=== PATIENT | male | born 1960 | race Hispanic/Latino ===

== ENCOUNTER 2018-09-22 16:33 | Inpatient (IN) | payer SELFPAY ==
[2018-09-22] MEDS ORDERED: Iopamidol 370 76% 100 ML VIAL ONE (16:56)
[2018-09-22 17:10] LABS: Bilirubin Negative (Negative); Blood, Urine Negative (Negative); Clarity CLEAR (Clear); Glucose, Urine (Dipstick) Negative (Negative); Leukocyte Negative (Negative); Nitrite Negative (Negative); Protein, Urine (Dipstick) Negative (Neg-Trace); Specific Gravity, Urine 1.019 (1.002-1.036)
[2018-09-22 18:08] LABS: #Eosinphils 0.3 thou/uL (0.0-0.7); #Lymphocytes 1.3 thou/uL (1.20-3.40); #Monocytes 0.5 thou/uL (0.11-0.59); #Neutrophils 4.4 thou/uL (1.40-6.50); %Basophils 0.1 % (0.0-1.0); %Eosinophils 5.1 % (0.0-10.0); %Lymphocytes 20.2 % (21.0-51.0); %Monocytes 6.9 % (0.0-10.0); %Neutrophils 67.7 % (42.0-75.0); Hemoglobin 14.3 g/dL (14.0-18.0); Mean Corpuscular HGB CONC 33.3 g/dL (32.0-36.0); Mean Corpuscular Hemoglobin 32.9 pg (27.0-31.0); Mean Corpuscular Volume 98.7 fL (78.0-98.0); Mean Platelet Volume 8.2 fL (7.4-10.4); Platelet Count 130 thou/uL (130-400); RBC Distribution Width 11.7 % (11.5-14.5); Red Blood Cell (RBC) Count 4.35 mill/uL (4.70-6.10); White Blood Cell (WBC) Count 6.5 thou/uL (4.8-10.8)
[2018-09-22 18:29] LABS: ALT (SGPT) 33 U/L (8-55); AST (SGOT) 29 U/L (5-34); Albumin 3.6 g/dL (3.5-5.0); Alkaline Phosphatase 123 U/L (40-150); Anion Gap 13 mmol/L (10-20); BUN (Urea Nitrogen) 16 mg/dL (8.4-25.7); Bilirubin, Total 1.2 mg/dL (0.2-1.2); Calc. Creatinine Clearance 0 mL/min (70-130); Calcium 9.1 mg/dL (7.8-10.44); Carbon Dioxide 27 mmol/L (22-29); Chloride 106 mmol/L (98-107); Estimated GFR-MDRD 82; Globulin 3.3 g/dL (2.4-3.5); Glucose 115 mg/dL (70-105); Potassium 4.5 mmol/L (3.5-5.1); Protein, Total 6.9 g/dL (6.0-8.3); Sodium 141 mmol/L (136-145)
--- NOTE | 2018-09-22 19:17 | RAD ---
UPRIGHT PORTABLE CHEST ONE VIEW: 09/22/18 HISTORY: 57-year-old male with history of shortness of breath and new onset atrial fibrillation. COMPARISON: 11/15/17. FINDINGS: Minimal cardiomegaly. Bronchovascular markings are slightly prominent bilaterally. Probable small mike ateral pleural effusions and mild vascular congestion. No confluent pneumonia. No overt edema. IMPRESSION: Evidence for mild vascular congestion and small pleural effusions with minimal cardiomegaly. No confl uent pneumonia. POS: H
[2018-09-22] MEDS ORDERED: Enoxaparin Sodium 60 MG/0.6 ML SYRINGE ONE (20:24)
--- NOTE | 2018-09-22 21:35 | CT ---
CT ANGIOGRAM CHEST WITH 3D RENDERIN09/22/18 HISTORY: 57-year-old male with history of shortness of breath. Small bilateral pleural effusions. Patchy parenchymal changes are noted bilaterally including a 0.5 c m diameter somewhat poorly marginated nodule pleural based in the right middle lobe superiorly. There is also a poorly circumscribed somewhat lobular nodular density in the left upper lobe which is also pleural based adjacent to the major fissure. This nodular area measures 1.6 x 1.8 cm. There is some scattered areas of more poorly defined linear and nodular parenchymal changes including right and lef t lower lobes with small bilateral pleural effusions. There are some scattered mediastinal lymph node s which are up to borderline in size but without overt lymphadenopathy. Cardiomegaly. Some of the sma ller pulmonary artery branches are somewhat less than optimally seen particularly in the lower lobes. There is no convincing CT evidence for acute pulmonary embolism. The visualized upper abdomen is unr emarkable except for gallstone without gallbladder wall edema. Probable small hiatal hernia. IMPRESSION: No convincing CT evidence for acute pulmonary embolism. Small pleural effusions. Patchy nonspecific p arenchymal changes bilaterally which could represent some atypical pneumonia or pneumonitis. 0.5 cm d iameter subpleural nodule in the right middle lobe adjacent to the minor fissure. Somewhat poorly def ined 1.6 x 1.8 cm diameter nodular density in the left upper lobe adjacent to the major fissure. Cons ider three month followup chest CT scan for further assessment of these nodular densities. Cardiomega ly. Other findings as above. Code LN POS: BRUNA
[2018-09-22] MEDS ORDERED: Bisacodyl 10 MG SUPP PR PRN (21:51)
[2018-09-22] MEDS ORDERED: Zolpidem Tartrate 5 MG TAB PO PRN (21:51)
[2018-09-22] MEDS ORDERED: Ondansetron PF 4 MG/2 ML Vial IVP PRN (21:51)
[2018-09-22] MEDS ORDERED: HYDROcodone/Acetaminophen 5/325 mg Tablet PO PRN (21:51)
[2018-09-22] MEDS ORDERED: Guaifenesin DM 100-10/5 ML UDCUP PO PRN (21:51)
[2018-09-22] MEDS ORDERED: Senokot S 8.6-50 MG TAB PO PRN (21:51)
[2018-09-22] MEDS ORDERED: Bisacodyl 5 MG TAB PO PRN (21:51)
[2018-09-22] MEDS ORDERED: Calcium Carbonate 500 MG ChewTAB PO PRN (21:51)
[2018-09-22] MEDS ORDERED: Acetaminophen 325 MG TAB PO PRN (21:51)
[2018-09-22] MEDS ORDERED: Ondansetron ODT 4 MG TAB PO PRN (21:51)
[2018-09-22] MEDS ORDERED: Loperamide HCl 2 MG CAP PO PRN (21:51)
[2018-09-22] MEDS ORDERED: Dextrose 5% in Water 1,000 ML IV PRN (21:53)
[2018-09-22] MEDS ORDERED: HumaLOG 300 UNITS/3 ML VIAL SC PRN ×2 (21:53)
[2018-09-22] MEDS ORDERED: Dextrose 50% Abboject 50 ML SYRINGE SLOW IVP PRN (21:53)
[2018-09-22 22:45] VITALS: BMI 39.4
--- NOTE | 2018-09-23 00:20 | HP ---
PRIMARY CARE PHYSICIAN: [facility]. REASON FOR ADMISSION: Dyspnea. HISTORY OF PRESENT ILLNESS: A 57-year-old male, who has underlying history of diabetes, hypertension, dyslipidemia, obesity, who came to the emergency room for evaluation of shortness of breath, which was started on September 18, 2018. The patient was getting out of breath after walking few distance which is pretty much new for the patient. He was not having any classic orthopnea, PND, or any lower extremity pitting edema. He did not have any chest pain, palpitation, or syncope. The patient's symptoms were gradually getting worse for the last 2 to 3 days and that is why patient decided to come to emergency room for evaluation. As per Paramedics, the patient had new onset atrial fibrillation. Here in our hospital, EKG showed atrial fibrillation. This is not the diagnosis which patient knows. The patient does not know when it started, but today's EKG was showing atrial fibrillation. He had CT angiography for elevated D-dimer, which was negative for PE, but it showed small pleural effusion, cardiomegaly, and some nodular changes. His BNP is elevated. Rest of blood test was unremarkable. REVIEW OF SYSTEMS: CONSTITUTIONAL: Negative for weight loss or gain, ability to conduct usual activities. SKIN: Negative for rash, itching. EYES: Negative for double vision, pain. ENT/MOUTH: Negative for nose bleeding, neck stiffness, pain, tenderness. CARDIOVASCULAR: As above. RESPIRATORY: As above. GASTROINTESTINAL: Negative for poor appetite, abdominal pain, heartburn, nausea , vomiting, constipation, or diarrhea. GENITOURINARY: Negative for urgency, frequency, dysuria, nocturia. MUSCULOSKELETAL: Negative for pain, swelling. NEUROLOGIC/PSYCHIATRIC: Negative for anxiety, depression. ALLERGY/IMMUNOLOGIC: Negative for skin rash, bleeding tendency. Please see my HPI for pertinent positives and negative. All other review of systems reviewed and negative except as mentioned in HPI. ALLERGIES: NO KNOWN DRUG ALLERGIES. CURRENT HOME MEDICATIONS: 1. Metformin 1000 mg twice daily. 2. Naproxen 500 mg as needed. 3. Glipizide 2.5 mg twice daily. 4. Aspirin 81 mg daily. 5. Lisinopril 5 mg daily. 6. Pravastatin 10 mg q.h.s. 7. Gabapentin 100 mg three times daily. PAST MEDICAL HISTORY: 1. Osteoarthritis. 2. Obesity. 3. Diabetes type 2. 4. Hypertension. 5. Dyslipidemia. 6. Diabetic neuropathy. PAST SURGICAL HISTORY: Shoulder surgery. PAST PSYCHIATRIC HISTORY: Reviewed and negative SOCIAL HISTORY:The patient is , lives at home. He drinks alcohol socially. He is ex-smoker. He quit smoking last year. He denies any other illicit drug abuse. FAMILY HISTORY: Diabetes and hypertension among several family members. EMERGENCY ROOM COURSE: The patient is given Lovenox 1 mg/kg. PHYSICAL EXAMINATION: VITAL SIGNS: On arrival, blood pressure 145/107, pulse 80 and irregular, respiratory rate 18, temperature 97.8, and saturation 98% on room air. Weight 123 kg. GENERAL: The patient is currently alert, awake. No obvious acute distress. HEENT: Head; normocephalic, atraumatic. Eyes; pupils are round and reactive to light, extraocular muscles intact. ENT; oropharynx within normal limits, moist mucous membranes, no oral lesion, no pharyngeal erythema, no exudate. NECK: Supple. No JVD. No thyromegaly. No carotid bruit. LUNGS: Clear to auscultation without any obvious rhonchi or rales. CARDIAC: S1 and S2, irregular. No murmur. No gallop. No rub. ABDOMEN: Obesity present. Bowel sounds present. Nontender. Nondistended. No organomegaly. No mass. No suprapubic tenderness. BACK: Unremarkable. No CVA tenderness. EXTREMITIES: Upper extremities; passive movement of all joints are normal. Lower extremity, no edema. Good distal pulsation. SKIN: No skin rash. HEMATOLOGICAL: No lymphadenopathy. NEUROLOGIC: Nonfocal examination. SIGNIFICANT LABORATORY DATA/IMAGING: CT angiography showed no evidence of pulmonary embolism. Small pleural effusion. Patchy nonspecific parenchymal changes bilaterally consistent with atypical pneumonia, pulmonary nodule, as well as nodular density in left upper lobe and right middle lobe. Chest x-ray based on my review showing pulmonary vascular congestion. EKG showing atrial fibrillation. CBC; WBC 6.5, hemoglobin 14.3, platelet 130. D-dimer 1.41. Sodium 141, potassium 4.5, chloride 106, carbon dioxide 27, BUN 16, creatinine 0.94, glucose 115, calcium 9.1. LFT; AST 29, ALT 33, alkaline phosphatase 123. Cardiac enzymes negative x2. BNP 389.4. Urinalysis normal. ASSESSMENT AND PLAN: 1. New onset atrial fibrillation. The patient will need Lovenox for anticoagulation. We will continue with Coreg 6.25 mg p.o. b.i.d. Cardiology will be consulted. Echocardiography will be obtained. We will check TSH tomorrow, aspirin 325 mg p.o. daily. 2. Dyspnea, likely from new onset diastolic heart failure. Echocardiography will be obtained. We will continue the Lasix 20 mg IV b.i.d. 3. Hypertension. We will continue lisinopril 10 mg p.o. daily along with Coreg 6.25 mg b.i.d. 4. Diabetes, type 2. We will hold metformin because of CT angiography. We will continue glipizide 2.5 mg b.i.d. Diabetic diet and insulin as per sliding scale protocol. 5. Dyslipidemia. Check lipid profile tomorrow and continue Lipitor 10 mg p.o. q.h.s. 6. Obesity with BMI 39. Dietary education given. Weight loss education given. 7. Atypical pneumonia suspected. We will start doxycycline 100 mg p.o. b.i.d. 8. Deep venous thrombosis prophylaxis. The patient is already on full dose of Lovenox therapy. 9. Gastrointestinal prophylaxis. Pepcid 20 mg p.o. b.i.d. CODE STATUS: The patient is full code. DISPOSITION/PLAN: Based on clinical course, this patient is instructed to get repeat CT scan upon followup with primary care physician after discharge. Job ID: [id number] MTDD
[2018-09-23 00:38] LABS: Troponin I 0.024 ng/mL (< 0.028)
[2018-09-23 05:25] LABS: #Eosinphils 0.4 thou/uL (0.0-0.7); #Lymphocytes 1.6 thou/uL (1.20-3.40); #Monocytes 0.5 thou/uL (0.11-0.59); #Neutrophils 4.4 thou/uL (1.40-6.50); %Basophils 0.5 % (0.0-1.0); %Eosinophils 6.1 % (0.0-10.0); %Lymphocytes 22.9 % (21.0-51.0); %Monocytes 7.2 % (0.0-10.0); %Neutrophils 63.3 % (42.0-75.0); Mean Corpuscular HGB CONC 33.4 g/dL (32.0-36.0); Mean Corpuscular Hemoglobin 32.9 pg (27.0-31.0); Mean Corpuscular Volume 98.7 fL (78.0-98.0); Mean Platelet Volume 8.4 fL (7.4-10.4); Platelet Count 131 thou/uL (130-400); RBC Distribution Width 11.9 % (11.5-14.5); Red Blood Cell (RBC) Count 4.24 mill/uL (4.70-6.10); White Blood Cell (WBC) Count 6.9 thou/uL (4.8-10.8)
[2018-09-23 05:29] LABS: Hemoglobin A1c 6.7 % (4.0-6.0)
[2018-09-23 05:50] LABS: ALT (SGPT) 33 U/L (8-55); AST (SGOT) 31 U/L (5-34); Albumin 3.5 g/dL (3.5-5.0); Alkaline Phosphatase 107 U/L (40-150); Anion Gap 12 mmol/L (10-20); BUN (Urea Nitrogen) 15 mg/dL (8.4-25.7); Bilirubin, Total 1.5 mg/dL (0.2-1.2); Calc. Creatinine Clearance 151 mL/min (70-130); Calcium 9.4 mg/dL (7.8-10.44); Carbon Dioxide 27 mmol/L (22-29); Cardiac Risk 3.7 (Less than 4.5); Chloride 106 mmol/L (98-107); Cholesterol 136 mg/dl (< 200 Desired); Estimated GFR-MDRD 88; Globulin 3.3 g/dL (2.4-3.5); Glucose 107 mg/dL (70-105); HDL Cholesterol 37 mg/dL (>60 Neg Risk); LDL Cholesterol, Calculated 82 mg/dL; Magnesium 1.9 mg/dL (1.6-2.6); Protein, Total 6.8 g/dL (6.0-8.3); Sodium 141 mmol/L (136-145); Triglycerides 83 mg/dL (Less than 150); Uric Acid 6.8 mg/dL (3.5-7.2)
[2018-09-23] MEDS: Furosemide 20 MG/2 ML VIAL SLOW IVP SCH ×2 (06:10→13:16)
[2018-09-23] MEDS: Enoxaparin Sodium 120 MG/0.8 ML SYRINGE SC SCH ×2 (08:33→20:42)
[2018-09-23] MEDS: Aspirin 325 MG TAB PO SCH (08:34)
[2018-09-23] MEDS: Famotidine 20 MG TAB PO SCH ×2 (08:34→20:43)
[2018-09-23] MEDS: Lisinopril 2.5 MG TAB PO SCH (08:34)
[2018-09-23] MEDS: Doxycycline 100 MG CAP PO SCH ×2 (08:34→20:42)
[2018-09-23] MEDS: Carvedilol 3.125 MG TAB PO SCH ×2 (08:35→20:43)
[2018-09-23] MEDS ORDERED: Lisinopril 2.5 MG TAB PO SCH (09:00)
[2018-09-23] MEDS ORDERED: Carvedilol 3.125 MG TAB PO SCH (09:00)
[2018-09-23] MEDS ORDERED: Enoxaparin Sodium 40 MG/0.4 ML SYRINGE SC SCH (09:00)
--- NOTE | 2018-09-23 13:43 | PRG ---
DATE OF SERVICE: 09/23/2018 SUBJECTIVE: The patient is seen and examined at the bedside. He is improved since the time of admission. He does not wear any oxygen at the time of my visit. He does not have any chest pain. OBJECTIVE: VITAL SIGNS: Blood pressure is 140/91, temperature is 97.6, O2 saturation is 93% on room air, respiratory rate is 16, pulse is 62, and maximal temperature is 97.9. HEENT: His head is atraumatic and normocephalic. Eyes are PERRLA. Sclerae are nonicteric. Oral mucosa is moist. NECK: Supple. No lymphadenopathy. LUNGS: Presenting with crackles at both bases. No wheezing. HEART: S1 and S2. Irregularly irregular. No S3. No S4. ABDOMEN: Obese, nontender. Bowel sounds are present. No organomegaly. EXTREMITIES: No clubbing or cyanosis. There is mild edema on both lower extremities below the knees. NEUROLOGIC: He is alert and oriented x4. There is no any motor or sensory deficits. Cranial nerves are intact. LABORATORY DATA: Labs showed white count of 6.9, hemoglobin is 14.0, hematocrit is 41.8, platelet count is 131,000. Chemistry showed normal electrolytes, normal BUN, creatinine 0.88, glucose is 107. Hemoglobin A1c is 6.7. Total bili is 1.5, and the rest of chemistry within normal limits. He has had 3 sets of troponin I and all of them were within normal limits. TSH is 2.05. IMPRESSION: 1. New-onset atrial fibrillation. 2. Dyspnea and possible congestive heart failure, diastolic heart failure. 3. Hypertension. 4. Diabetes mellitus, type 2. 5. Dyslipidemia. 6. Morbid obesity. 7. Atypical pneumonia suspected, started on doxycycline. 8. Right middle lobe pulmonary nodule for further evaluation with a CT in 3 months. PLAN: To continue his current regimen. He is going to continue his doxycycline, his furosemide IV push every 12 hours, his carvedilol, aspirin, and lisinopril. He will continue full anticoagulation with enoxaparin 120 mg subcutaneous every 12 hours and we are still waiting for Cardiology to see him. Clinically, he is doing better. Job ID: [id number]
[2018-09-23] MEDS ORDERED: Sodium Chloride 0.9% 10 ML ONE (19:59)
[2018-09-23] MEDS: Atorvastatin Calcium 10 MG TAB PO SCH (20:43)
--- NOTE | 2018-09-23 20:49 | CON ---
DATE OF CONSULTATION: 09/23/2018 TYPE OF CONSULTATION: Cardiology INDICATION FOR CONSULTATION: This is a 57-year-old with newly-diagnosed atrial fibrillation with congestive heart failure symptoms. HISTORY OF PRESENT ILLNESS: This is a very pleasant 57-year-old gentleman, who denies any previous cardiac history, has a history of hypertension, hypercholesterolemia and diabetes. Last Wednesday, he has been drinking Tequila and noticed after that he became somewhat short of breath, and has been short of breath all week and noticed some mild lower extremity edema. He presented to the emergency room and was found to be in atrial fibrillation. He denied any chest pain. EKG did not show any significant EKG changes to indicate ischemia. Also, his cardiac enzymes were unremarkable. He did not have any evidence of a myocardial infarction. His BNP was slightly elevated at 389, but cardiac enzymes were negative. He has had no previous history, but only symptomatic in the last week. 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 He has had no previous cardiac history otherwise. PAST MEDICAL HISTORY: Significant for right shoulder surgery and cholelithiasis. There is history of diabetic neuropathy as well as obesity, hypertension, hypercholesterolemia in addition to the diabetes and also morbid obesity. SOCIAL HISTORY: He has smoked in the past, but stopped about a year ago. Previously, he smoked for about 10 years, a pack a day. He has 1 or 2 beers a day. FAMILY HISTORY: Unremarkable for any early heart disease. ALLERGIES: NONE. MEDICATIONS: 1. Metformin 1000 mg b.i.d. 2. Naprosyn p.r.n. 3. Glipizide 2.5 mg b.i.d. 4. Aspirin 81 mg a day. 5. Lisinopril 5 mg a day. 6. Pravastatin 10 mg at bedtime. 7. Gabapentin 100 mg t.i.d. REVIEW OF SYSTEMS: A 12-point review of systems unremarkable except for what is noted in the history of present illness of shortness of breath and some lower extremity edema. This now seems to resolve, the edema. PHYSICAL EXAMINATION: GENERAL: A well-developed, well-nourished, obese gentleman, who is in no acute distress at this time. He is alert and oriented. VITAL SIGNS: His vital signs are stable. Blood pressure is 140/91, early was 174/97. Heart rates in the 60s and shows atrial fibrillation, but the rate is well controlled. He has not had any rapid ventricular response. O2 saturations are 97.6%. Respiratory rate was 16. HEENT/NECK: Reveals head to be normocephalic and atraumatic. Carotid pulses are present. I did not hear any bruits. There is no JVD. The thyroid did not appear to be enlarged. Oral mucosa was pink and moist. CHEST: Clear to auscultation. I did not hear any significant rales, rhonchi or wheezing. There were very soft rales noted in the left base, otherwise unremarkable. CARDIOVASCULAR: Somewhat bradycardic heart rate, but somewhat irregular. There were no significant murmurs, heaves, thrills, bruits or rubs. ABDOMEN: Obese with positive bowel sounds. There is no organomegaly, masses or tenderness noted. EXTREMITIES: No clubbing, cyanosis or edema. Pedal pulses are present. NEUROLOGIC: The patient appears to be intact. LABORATORY DATA: His laboratory data as noted shows no evidence of myocardial infarction. Troponin Is were negative. BNP was 389. Potassium was 4.5 and creatinine was 0.94. His D-dimer was 1.4. Hemoglobin was 14 with a hematocrit of 41.8, WBC of 6.9, and platelet count was 131,000. EKG shows atrial fibrillation with decreased R-wave progression, V1 through V3, with what appears to be an incomplete right bundle-branch block. IMPRESSION: 1. Newly-diagnosed atrial fibrillation, uncertain of the duration, but this may have started approximately a week ago when he was drinking Tequila. However, his ejection fraction is significantly compromised. Ejection fraction today is about 30% to 35%, and this may be an ongoing process that the patient was unaware of. Since the rate is under good control, we would advise at least to control the rate as we have with atrial fibrillation, and he will need to undergo further evaluation to determine the possible etiology of the atrial fibrillation. 2. Diabetes. The will be dealt by the primary care service. 3. History of hypertension. This is under relatively good control at this time. We can also add further beta-blockers in order to get better control of the blood pressure as well as the heart rate is under good control at this time. The echocardiogram showed ejection fraction of 30% to 35% with mild mitral valve regurgitation. He had mild left ventricular dilatation. He has [id number] left atrial dilatation, and mild tricuspid and pulmonary valve regurgitation. Best to undergo a cardiac catheterization possibly to evaluate for possible coronary artery disease as the possibly etiology of his atrial fibrillation. Given his risk factors with the severe decrease in left ventricular systolic function and there is now controlled heart rate, we will start him on oral anticoagulation, especially due to the decreased ejection fraction. He has already been placed on Lovenox and we would agree with this medication. At this time, we will need to have oral medications. We will further discuss with the patient about possible cardiac catheterization. If he continues to have severe decrease in LV systolic function, he may need to undergo an AICD implant in the future, but will need to have at least 90 days of the LifeVest, and most likely, he will need a LifeVest prior to discharge. We would be more than happy to continue to follow the patient with you. Job ID: [id number]
[2018-09-24] MEDS ORDERED: Sodium Chloride 0.9% 10 ML ONE (05:34)
[2018-09-24] MEDS: Furosemide 20 MG/2 ML VIAL SLOW IVP SCH ×2 (05:39→14:43)
[2018-09-24] MEDS: Aspirin 325 MG TAB PO SCH (08:48)
[2018-09-24] MEDS: Doxycycline 100 MG CAP PO SCH ×2 (08:48→20:36)
[2018-09-24] MEDS: Carvedilol 3.125 MG TAB PO SCH ×2 (08:48→20:36)
[2018-09-24] MEDS: Famotidine 20 MG TAB PO SCH ×2 (08:49→20:35)
[2018-09-24] MEDS: Lisinopril 2.5 MG TAB PO SCH (08:49)
[2018-09-24] MEDS: Enoxaparin Sodium 120 MG/0.8 ML SYRINGE SC SCH ×2 (08:49→20:36)
[2018-09-24 12:28] LABS: Anion Gap 16 mmol/L (10-20); BUN (Urea Nitrogen) 17 mg/dL (8.4-25.7); Calc. Creatinine Clearance 107 mL/min (70-130); Calcium 9.9 mg/dL (7.8-10.44); Carbon Dioxide 26 mmol/L (22-29); Chloride 103 mmol/L (98-107); Estimated GFR-MDRD 62; Glucose 131 mg/dL (70-105); Potassium 4.6 mmol/L (3.5-5.1); Sodium 140 mmol/L (136-145)
--- NOTE | 2018-09-24 12:39 | PRG ---
DATE OF SERVICE: 09/24/2018 SUBJECTIVE: The patient is seen and examined at bedside. He does not have much complaints to offer. He does not have any chest pain. His shortness of breath improved. He goes to the bathroom a lot to urinate. OBJECTIVE: VITAL SIGNS: Blood pressure is 143/83, pulse is 83, temperature is 97.4, respiratory rate is 18, O2 saturation 95% on room air. HEENT: His head is atraumatic and normocephalic. Eyes; PERRLA. Sclerae are nonicteric. Conjunctivae pink. Oral mucosa is moist. NECK: Supple. LUNGS: Breath sounds diminished at both bases with crackles bilaterally, less than he had before. HEART: S1 and S2 normal. Somewhat distant. No S3. No S4. Irregularly irregular. ABDOMEN: Obese, soft, nontender. EXTREMITIES: 1+ peripheral edema similar bilaterally, in the lower extremities in the ankle area. NEUROLOGICAL: He is alert and oriented x4. There is no any motor or sensory deficits present. Cranial nerves are intact. LABORATORY DATA: None. DIAGNOSTIC DATA: Echocardiogram showed LVEF of 30% to 35%. Left ventricle size is mildly enlarged. Spleen increased. Global hypokinesia. Normal right ventricle size and function. Left atrium is moderately to severely dilated. Right atrium is normal in size. There is mild mitral regurgitation. Aortic valve appears tricuspid, tricuspid regurgitation, and mild pulmonic regurgitation present. IMPRESSION: 1. New onset atrial fibrillation with controlled ventricular rate at this point. 2. Congestive heart failure with LVEF estimated at 30% to 35%. 3. Hypertension. 4. Diabetes mellitus. 5. Dyslipidemia. 6. Morbid obesity. 7. Suspected atypical pneumonia, started on doxycycline. 8. Right middle lobe pulmonary nodule for further evaluation with a CT in 3 months. PLAN: He is to continue his doxycycline. Continue full dose of enoxaparin. The patient was seen by Cardiology, Dr. Evans, who wants to do cardiac catheterization on him. For now, we will continue his atorvastatin, carvedilol, furosemide, lisinopril. We will continue his Accu-Cheks before meals and at bedtime. His glycemia is ranging from 97 to 137, which is well controlled. Job ID: [id number]
[2018-09-24] MEDS: Atorvastatin Calcium 10 MG TAB PO SCH (20:36)
--- NOTE | 2018-09-24 22:19 | PDOC.CTH ---
Cardiology Progress Note - Subjective The pt seen and examined. No overnight events. No cardiac complaints. The pt' s HR went down to 30-40s while he was sleeping. - Objective Vital Signs Temp Pulse Pulse Pulse Resp BP BP 09/24/18 20:00 97.6 F 82 18 09/24/18 16:49 97.8 F 86 18 09/24/18 11:59 96 82 122/78 137/75 09/24/18 11:58 97.3 F L 88 18 BP Pulse Ox Pulse Ox Pulse Ox 09/24/18 20:00 134/76 96 09/24/18 16:49 134/93 H 96 09/24/18 11:59 92 L 93 L 09/24/18 11:58 122/78 92 L Weight 249 lb 8 oz 09/23/18 09/24/18 09/25/18 06:59 06:59 06:59 Intake Total 300 1042 720 Output Total 525 5850 2700 [facility] [id number] [id number] [id number] - Physical Examination General/Neuro: alert & oriented x3 Neck: no JVD present Lungs: CTA (diminished at bases) Heart: other: (irregular) Abdomen: soft Extremities: other: (No edema) - Telemetry Telemetry Rhythm: Afib with HR 80s - Labs Result Diagrams: 09/25/18 07:09 09/25/18 07:09 Troponin/CKMB Troponin I 0.024 ng/mL (< 0.028) 09/23/18 00:06 - Assessment/Plan 1.New onset of Chronic systolic HF with EF 30-35% - Stable with RA. On Lasix, BBlocker, MARLON. Plan for [facility] on Wednesday by Dr Evans. 2. New onset of Afib with RVR - Rate well controlled with current medication. On Lovenox BID, which will change to PO OACs. 3. HTN - stable with current med 4. DM type 2 - managed by PCP 5. Hyperlipidemia - On statin 6. Obese - weight management education given the pt and 7. Ex-smoker, quit 1 year ago - smoking cessation education given to the pt and 8. ETOH abuse - ETOH cesassation education given to the pt and family 9. Rt middle lob pulm. nodule - 10. possible Sleep apnea - The pt's HR went down to 30-40s while he was sleeping. May need Sleep study as outpt? MAR reviewed * Possible LifeVest at discharge Pt. seen and eval. by me. I agree with the A/P by the PHYSICS TECHNICAL OFFICER. Chest clear. IRRR, No edema. Review of Systems - Review of Systems Constitutional: reports: no symptoms reported EENTM: reports: no symptoms reported Respiratory: reports: no symptoms reported Cardiac (ROS): reports: no symptoms reported ABD/GI: reports: no symptoms reported : reports: no symptoms reported Musculoskeletal: reports: no symptoms reported Skin: reports: no symptoms reported
[2018-09-25] MEDS: Furosemide 20 MG/2 ML VIAL SLOW IVP SCH ×2 (05:37→14:29)
[2018-09-25 07:31] LABS: Platelet Count 152 thou/uL (130-400)
[2018-09-25] MEDS: Carvedilol 3.125 MG TAB PO SCH ×2 (08:24→21:27)
[2018-09-25] MEDS: Lisinopril 2.5 MG TAB PO SCH (08:24)
[2018-09-25] MEDS: Aspirin 325 MG TAB PO SCH (08:24)
[2018-09-25] MEDS: Famotidine 20 MG TAB PO SCH ×2 (08:24→21:27)
[2018-09-25] MEDS: Doxycycline 100 MG CAP PO SCH (08:25)
[2018-09-25] MEDS: Enoxaparin Sodium 120 MG/0.8 ML SYRINGE SC SCH ×2 (08:25→21:24)
--- NOTE | 2018-09-25 12:48 | PRG ---
DATE OF SERVICE: 09/25/2018 SUBJECTIVE: The patient is seen and examined at bedside. He is doing quite well. He does not have much complaints to offer. He does not need any oxygen any more. His appetite is fair. He moved his bowels. OBJECTIVE: VITAL SIGNS: Blood pressure is 134/84, temperature is 98, respiratory rate is 18, pulse 79, and O2 saturation 98% on room air. HEENT: His head is atraumatic and normocephalic. Eyes are PERRLA. Sclerae nonicteric. Oral mucosa is moist. NECK: Supple. LUNGS: Breath sounds diminished at both bases with crackles bilaterally. HEART: S1 and S2, somewhat distant. No S3. No S4. ABDOMEN: Obese, soft, nontender, nondistended. EXTREMITIES: No clubbing or cyanosis. There is no edema. NEUROLOGIC: He is alert and oriented x4. There is no any motor or sensory deficits present. Cranial nerves are intact. LABORATORY DATA: Showed hemoglobin of 17.0, hematocrit 50.7, glycemia is ranging from 113 to 165, creatinine 1.13, and estimated GFR 67. IMPRESSION: 1. New onset of chronic systolic heart failure with ejection fraction of left ventricle estimated at 30% to 35%, on MARLON inhibitor, Lasix, and beta-alphonso. He is going to have cardiac catheterization on Wednesday. 2. New onset of atrial fibrillation with rapid ventricular response. At this point, rate is controlled on Lovenox full dose. 3. Hypertension, stable. 4. Diabetes mellitus 2, stable. 5. Hyperlipidemia. 6. Obesity. 7. Suspected atypical pneumonia, started on doxycycline and continued on it. 8. Right middle lobe pulmonary nodule for further evaluation with a CT in 3 months. PLAN: Plan is to continue enoxaparin full dose. The patient clinically is doing very well. The diagnosis of atypical pneumonia is very questionable at this point. We are going to stop his doxycycline. We will continue his atorvastatin, carvedilol, furosemide, and lisinopril. We will continue Accu-Cheks a.c. and at bedtime and he is going to have cardiac catheterization of the left heart on Wednesday by Dr. Evans. Job ID: [id number]
--- NOTE | 2018-09-25 15:20 | PDOC.CTH ---
Cardiology Progress Note - Subjective The pt seen and examined. No overnight events. No cardiac complaints. He can sleep in spine position. - Objective Vital Signs Temp Pulse Resp BP Pulse Ox 09/25/18 11:31 98 F 78 18 134/84 98 09/25/18 08:24 81 09/25/18 07:36 97.9 F 81 18 119/76 96 09/25/18 07:35 96 09/25/18 03:20 98.1 F 75 17 153/95 H 91 L Weight 245 lb 09/24/18 09/25/18 09/26/18 06:59 06:59 06:59 Intake Total 1042 960 Output Total 5850 4200 Balance -4772 -0699 - Physical Examination General/Neuro: alert & oriented x3 Neck: no JVD present Lungs: CTA Heart: other: (irregular) Abdomen: soft Extremities: other: (No edema) - Telemetry Telemetry Rhythm: Afib 60-90s - Labs Result Diagrams: 09/25/18 07:09 09/25/18 07:09 Troponin/CKMB Troponin I 0.024 ng/mL (< 0.028) 09/23/18 00:06 - Assessment/Plan 1. New onset of Chronic systolic HF with EF 30-35% - Stable with RA. On Lasix, BBlocker, MARLON. Plan for LHC on Wednesday by Dr Evans. 2. New onset of Afib with RVR - Rate well controlled with current medication. On Lovenox BID, which will change to PO OACs. 3. HTN - stable with current med 4. DM type 2 - managed by PCP 5. Hyperlipidemia - On statin 6. Obese - weight management education given the pt and 7. Ex-smoker, quit 1 year ago - smoking cessation education given to the pt and 8. ETOH abuse - ETOH cesassation education given to the pt and family 9. Rt middle lob pulm. nodule - 10. possible Sleep apnea - The pt's HR went down to 30-40s while he was sleeping. May need Sleep study as outpt? MAR reviewed * Plan for LHC on Wednesday by Dr Evans. Pt. seen and eval. by me. I agree with the A/P by the MEDICAL LAB TECHNICIAN. Chest clear. IRRR, No edema. Review of Systems - Review of Systems Constitutional: reports: no symptoms reported EENTM: reports: no symptoms reported Respiratory: reports: no symptoms reported Cardiac (ROS): reports: no symptoms reported ABD/GI: reports: no symptoms reported : reports: no symptoms reported Musculoskeletal: reports: no symptoms reported Skin: reports: no symptoms reported
[2018-09-25] MEDS ORDERED: Communication Order-Pharmacy FS SCH (19:15)
[2018-09-25] MEDS: Atorvastatin Calcium 10 MG TAB PO SCH (21:27)
[2018-09-26] MEDS: Carvedilol 3.125 MG TAB PO SCH (05:30)
[2018-09-26] MEDS: Furosemide 20 MG/2 ML VIAL SLOW IVP SCH ×2 (05:30→15:29)
[2018-09-26] MEDS: Lisinopril 2.5 MG TAB PO SCH (05:30)
[2018-09-26] MEDS: Aspirin 325 MG TAB PO SCH (05:30)
[2018-09-26] MEDS: Famotidine 20 MG TAB PO SCH ×2 (05:31→20:49)
[2018-09-26] MEDS ORDERED: Verapamil 5 MG/2 ML VIAL ONE (08:47)
[2018-09-26] MEDS ORDERED: Heparin 10,000 UNITS/1 ML VIAL ONE (08:47)
[2018-09-26] MEDS ORDERED: Nitroglycerin 100MG/250ML BOT 250 ML ONE (08:47)
[2018-09-26] MEDS ORDERED: Midazolam HCl 2 mg/2 ml Vial ONE (09:00)
[2018-09-26] MEDS ORDERED: DOPamine 400 MG/D5W 250 ML 0 ML ONE (09:21)
[2018-09-26] MEDS ORDERED: Iopamidol 370 76% 100 ML VIAL ONE (09:33)
[2018-09-26] MEDS ORDERED: Sodium Chloride 0.9% 200 ML IV SCH (11:31)
[2018-09-26] MEDS ORDERED: Acetaminophen/Codeine 30-300mg Tablet PO PRN ×2 (11:31)
[2018-09-26] MEDS ORDERED: traMADol HCl 50 MG TAB PO PRN (11:31)
[2018-09-26] MEDS ORDERED: Nitroglycerin 0.4 MG TAB (25 Tab Bottle) SL PRN (11:31)
--- NOTE | 2018-09-26 12:24 | PRG ---
DATE OF SERVICE: 09/26/2018 SUBJECTIVE: The patient is seen and examined at the bedside. His is present in the room during my visit. There were no any unexpected events overnight. OBJECTIVE: VITAL SIGNS: Blood pressure is 127/80, pulse is 72, respiratory rate 18, temperature is 97.9, O2 saturation is 93% on room air. GENERAL: He is not in any distress during my visit. HEENT: His head is atraumatic and normocephalic. Eyes are PERRLA. Sclerae are nonicteric. Oral mucosa is moist. NECK: Supple, obese. LUNGS: Breath sounds diminished at both bases. HEART: S1, S2. Irregularly irregular. No S3. No S4. No any murmur. ABDOMEN: Obese, nontender. EXTREMITIES: No edema. NEUROLOGICAL: He is alert and oriented x4. There is no any motor or sensory deficits present. Cranial nerves are intact. LABORATORY DATA: Glycemia is ranging from 111 to 152. Cardiac catheterization was done and it showed normal coronary arteries, no blockages and severely impaired ventricular function. EF was estimated at less than 15% to 20%. IMPRESSION: 1. New onset of chronic systolic heart failure with EF of approximately 20% per cardiac cath. 2. New onset atrial fibrillation with rapid ventricular response, rate controlled with current medications on full dose of Lovenox. 3. Hypertension. 4. Diabetes mellitus. 5. Hyperlipidemia. 6. Alcohol abuse. 7. Right middle lobe pulmonary nodule for further evaluation with a CT scan of the chest in 3 months. 8. Obesity. PLAN: The patient had normal cardiac catheterization, so his cardiomyopathy is not related to ischemic heart disease. Etiology is unclear. Most likely, alcohol abuse is the main factor at this point. Cardiology will make decision about AICD placement and for now, we will continue his current regimen with furosemide, full dose of Lovenox since he is still in atrial fibrillation. At this point, he is switched to Eliquis 5 mg twice a day from full dose of heparin. We will continue furosemide, lisinopril, and aspirin. He does not require any significant diabetic treatment, this can be managed with diet. Job ID: [id number]
[2018-09-26] MEDS: Atorvastatin Calcium 10 MG TAB PO SCH (20:48)
[2018-09-26] MEDS: Apixaban 5 MG TAB PO SCH (20:48)
[2018-09-26] MEDS: Carvedilol 6.25 MG TAB PO SCH (20:49)
[2018-09-27] MEDS: Furosemide 20 MG/2 ML VIAL SLOW IVP SCH ×2 (05:37→13:59)
[2018-09-27 07:14] LABS: Platelet Count 155 thou/uL (130-400)
[2018-09-27] MEDS: Famotidine 20 MG TAB PO SCH (08:38)
[2018-09-27] MEDS: Apixaban 5 MG TAB PO SCH (08:38)
[2018-09-27] MEDS: Lisinopril 2.5 MG TAB PO SCH (08:38)
[2018-09-27] MEDS: Carvedilol 6.25 MG TAB PO SCH (08:38)
[2018-09-27] MEDS ORDERED: Aspirin 81 mg Enteric Coated Tablet PO SCH (09:00)
--- NOTE | 2018-09-27 12:57 | PDOC.CTH ---
Cardiology Progress Note - Subjective The pt seen and examined. No overnight events. No cardiac complaints. - Objective Vital Signs Temp Pulse Resp BP Pulse Ox 09/27/18 08:00 96 09/27/18 07:28 97.1 F L 80 18 119/84 96 09/27/18 04:00 98 F 97 17 131/81 96 Weight 253 lb 1.6 oz 09/26/18 09/27/18 09/28/18 06:59 06:59 06:59 Intake Total 1200 260 Output Total 3200 475 Balance -1999 - Physical Examination General/Neuro: alert & oriented x3 Neck: no JVD present Lungs: CTA Heart: other: (irregular) Abdomen: soft Extremities: other: (No edema) - Telemetry Telemetry Rhythm: AFib 80-90s - Labs Result Diagrams: 09/27/18 06:57 09/27/18 06:57 Troponin/CKMB Troponin I 0.024 ng/mL (< 0.028) 09/23/18 00:06 - Assessment/Plan 1. New onset of Chronic systolic HF with EF 30-35% - Stable with RA. On Lasix, BBlocker, MARLON. Cardiac cath showed normal coronary arteries. 2. New onset of Afib with RVR - Rate well controlled with Coreg 6.25mg BID. On Eliquis 5mg BID. 3. HTN - stable with current med 4. DM type 2 - managed by PCP 5. Hyperlipidemia - On statin 6. Obese - weight management education given the pt and 7. Ex-smoker, quit 1 year ago - smoking cessation education given to the pt and 8. ETOH abuse - ETOH cessation education given to the pt and family 9. Rt middle lob pulm. nodule - CT within 3 months as outpt. 10. possible Sleep apnea - The pt's HR went down to 30-40s while he was sleeping. May need Sleep study as outpt? MAR reviewed * From Cardiac standpoint, the pt is stable to d/c home once he receives LifeVest fitting. The pt will f/u with Dr Evans' office within 2-4 wks; possible MAJOR/DCCV within 6 wks, and Echo within 3 months. * F/u with CHF clinic for CHF management. Review of Systems - Review of Systems Constitutional: reports: no symptoms reported EENTM: reports: no symptoms reported Respiratory: reports: no symptoms reported Cardiac (ROS): reports: no symptoms reported ABD/GI: reports: no symptoms reported : reports: no symptoms reported Musculoskeletal: reports: no symptoms reported
[2018-09-27 17:19] VITALS: BP 108/55; TEMP 97.9
--- NOTE | 2018-09-28 16:57 | DIS ---
DATE OF ADMISSION: 09/22/2018 DATE OF DISCHARGE: 09/27/2018 PRIMARY CARE PHYSICIAN: [facility]. REASON FOR ADMISSION: Dyspnea. PRINCIPAL DIAGNOSES ON ADMISSION: 1. New onset atrial fibrillation. 2. Dyspnea. 3. Hypertension. 4. Type 2 diabetes. 5. Dyslipidemia. 6. Obesity. DISCHARGE DIAGNOSES: 1. Systolic congestive heart failure, new onset, in the context of atrial fibrillation with rapid ventricular response (possible tachycardia-mediated cardiomyopathy), ejection fraction 30% to 35% (no evidence of coronary artery disease on cardiac catheterization). 2. New onset atrial fibrillation with rapid ventricular response, presently anticoagulated on Eliquis, rate controlled on Coreg. 3. Essential hypertension. 4. Type 2 diabetes, presently managed by diet. 5. Dyslipidemia. 6. Morbid obesity. 7. Former history of tobacco dependence, in remission. 8. History of alcohol abuse, status post alcohol cessation education. 9. Right middle lobe pulmonary nodule, with plans to follow up outpatient CT within 3 months. 10. Suspected obstructive sleep apnea, with discussion for outpatient sleep study. STUDY/PROCEDURES: 1. Cardiac catheterization 09/22/2018, no evidence of occlusive coronary artery disease. 2. Echocardiogram, 09/23/2018, ejection fraction 30% to 35%. Consultation cardiology, Dr. Evans. 3. CT chest/thorax, 09/22/2018, no CT evidence for pulmonary embolism. Small bilateral pleural effusions. Patchy nonspecific parenchymal change bilaterally, which could represent atypical pneumonia versus pneumonitis. A 0.5 cm diameter subpleural nodule right middle lobe adjacent to minor fissure. Somewhat poorly defined 1.6 x 1.8 cm diameter nodule left upper lobe adjacent to major fissure with recommendation for followup of nodular densities in three months. HOSPITAL COURSE: Mr. Irving Dasilva is a 57-year-old gentleman with a history of diabetes, hypertension, dyslipidemia, and obesity, presenting to the emergency department for evaluation of dyspnea, beginning in late August. He noted increasing dyspnea with exertion. EKG notable for atrial fibrillation, new onset. The patient was admitted to the hospital for additional evaluation and care. Evaluation revealed presence of systolic congestive heart failure with decompensation. The patient improved with diuretic therapy, rate control of atrial fibrillation, and supportive care. Cardiac catheterization showed no evidence of vaso-occlusive coronary artery disease. LifeVest subsequently placed, with plans for transition to the outpatient setting. On the evening of discharge, Mr. Irving Dasilva is feeling well. He is off oxygen. He is ambulating in the halls, hemodynamically stable. His current orders show interval discontinuation of metformin and sulfonylurea. Upon further questioning, he was not using those agents at home, rather controlling diabetes with medications. PHYSICAL EXAMINATION: LUNGS: On exam, lung linton are overall clear. HEART: Irregularly irregular, stable. ABDOMEN: Soft, obese, nontender. EXTREMITIES: Trace pedal edema present. DISCHARGE MEDICATIONS: Lasix 40 mg p.o. once daily, Eliquis 5 mg p.o. twice daily, carvedilol 6.25 mg p.o. twice daily, lisinopril 2.5 mg p.o. once daily, aspirin 81 mg p.o. once daily, pravastatin 10 mg p.o. at bedtime. DIET: Heart healthy/low-salt/diabetic. ACTIVITY: As tolerated. FOLLOWUP: Follow up with [facility] at [facility]. Follow up with Dr. Evans' office (at this time is scheduled an appointment for 10/06/2018 at 11:15 a.m., has been recorded). Follow up with Leigh Todd 09/30/2018 at 9:15 a.m. Total time spent on discharge planning 40 minutes. Job ID: [id number]
== END 2018-09-27 19:36 | disposition home or self-care (01) | DRG 286 ==
LOC: ERS 16:33 → 2NO 20:19
PROVIDERS: ADMIT Emergency Medicine; ATTEND Emergency Medicine
PROC: 4A023N7 Measurement of Cardiac Sampling and Pressure, Left Heart, Percutaneous Approach (ICD-10-PCS; principal; 2018-09-26)
PROC: B2111ZZ Fluoroscopy of Multiple Coronary Arteries using Low Osmolar Contrast (ICD-10-PCS; 2018-09-26)
PROC: B2151ZZ Fluoroscopy of Left Heart using Low Osmolar Contrast (ICD-10-PCS; 2018-09-26)
DX: I48.91 Unspecified atrial fibrillation (principal); I50.23 Acute on chronic systolic (congestive) heart failure; J18.9 Pneumonia, unspecified organism; E78.5 Hyperlipidemia, unspecified; Z68.38 Body mass index [BMI] 38.0-38.9, adult; I11.0 Hypertensive heart disease with heart failure; E11.40 Type 2 diabetes mellitus with diabetic neuropathy, unspecified; F10.10 Alcohol abuse, uncomplicated; G47.30 Sleep apnea, unspecified; R91.1 Solitary pulmonary nodule; E66.01 Morbid (severe) obesity due to excess calories; Z87.891 Personal history of nicotine dependence
CPT/HCPCS: 36415; 36416; 71045; 71275; 80048; 80053; 80061; 81003; 82565; 83036; 83735; 83880; 84443; 84484; 84550; 85014; 85018; 85025; 85049; 85379; 90471; 90732; 93005; 93306; 93458; 93798; 94760; 96372; C1769; G0009; J1265; J1644; J1650; J1940; J2250

== ENCOUNTER 2018-11-24 06:26 | Day surgery (SDC) | payer OTHER ==
[2018-11-23 12:53] VITALS: BMI 44.6
[2018-11-24] MEDS ORDERED: Lidocaine 1% PF 5 ML VIAL ONE (10:56)
[2018-11-24] MEDS ORDERED: PROPOFOL 200 MG/20 ML VIAL ONE (10:56)
--- NOTE | 2018-11-24 23:12 | ECHO ---
PREPROCEDURE DIAGNOSIS: A-fib. Transesophageal echo was done to evaluate for LV thrombus or left atrial appendage thrombus. The Anesthesiology department provided with sedation for the patient. Please see their notes for det ails. After adequate sedation was achieved, transesophageal probe was inserted into the mouth and into the esophagus. Multiplanar views were obtained. Left ventricle appears to be mildly dilated with severely reduced EF estimated at 20-25%. Left atrium is severely dilated. Left atrial appendage is a large appendage with no evidence of mass or thrombus. Right atrium is moderately dilated. The interatrial septum appears to be intact. The right ventricle is normal size with reduced RV systolic function. Aortic valve is structurally normal. Three cusps. No stenosis or regurgitation. Mitral valve is structurally normal. The is moderate to severe MR. Tricuspid valve is structurally normal. There is mild to moderate TR. Pulmonary valve is structurally normal. No significant stenosis or regurgitation. CONCLUSIONS: 1. Severely reduced EF estimated at 20-25%. 2. Biatrial enlargement. 3. Left atrial appendage is without mass or thrombus. 4. Moderate to severe mitral regurgitation. 5. Mild to moderate TR.
--- NOTE | 2018-11-24 23:22 | OP ---
DATE OF SERVICE: 11/24/18 PROCEDURES PERFORMED: Direct current cardioversion, synchronized. SUMMARY: The patient is brought to the outpatient area for a planned MAJOR cardioversion. Please see MAJOR report for details. After thrombus in the left atrial appendage was ruled out, initially a single 100 joules synchronized shock was delivered unsuccessfully. A second shock of 200 joules was unsuccessful. Pads were reposit ioned and a third shock at 360 joules was delivered synchronized successfully converting him from at rial flutter into sinus bradycardia. Patient tolerated the procedure well and the anesthesia departme nt provided with sedation. Pleas see their nodes are details. RECOMMENDATIONS: 1. Continued antiarrhythmic therapy. 2. Continue anticoagulation with Warfarin. Followup in the office in one month with followup echo to assess for possible need for AICD.
== END 2018-11-24 10:30 | disposition home or self-care (01) ==
LOC: CCL 06:26
PROVIDERS: ATTEND Internal Medicine Cardiovascular Disease
PROC: 5A2204Z Restoration of Cardiac Rhythm, Single (ICD-10-PCS; principal; 2018-11-24)
PROC: B24BZZ4 Ultrasonography of Heart with Aorta, Transesophageal (ICD-10-PCS; principal; 2018-11-24)
DX: I48.0 Paroxysmal atrial fibrillation (principal); I34.0 Nonrheumatic mitral (valve) insufficiency; I07.1 Rheumatic tricuspid insufficiency; I42.8 Other cardiomyopathies; E11.9 Type 2 diabetes mellitus without complications; I50.9 Heart failure, unspecified; G47.30 Sleep apnea, unspecified; Z87.891 Personal history of nicotine dependence; Z79.01 Long term (current) use of anticoagulants; Z79.899 Other long term (current) drug therapy
CPT/HCPCS: 92960; 93312; J2001; J2704

== ENCOUNTER 2019-04-14 10:11 | Emergency (ER) | payer SELFPAY ==
[2019-04-14 10:53] LABS: #Basophils 0.1 thou/uL (0.0-0.2); #Eosinphils 0.4 thou/uL (0.0-0.7); #Monocytes 0.5 thou/uL (0.11-0.59); #Neutrophils 6.9 thou/uL (1.40-6.50); %Basophils 0.6 % (0.0-1.0); %Eosinophils 3.8 % (0.0-10.0); %Lymphocytes 20.3 % (21.0-51.0); %Monocytes 5.2 % (0.0-10.0); %Neutrophils 70.1 % (42.0-75.0); Hemoglobin 14.9 g/dL (14.0-18.0); Mean Corpuscular HGB CONC 34.8 g/dL (32.0-36.0); Mean Corpuscular Hemoglobin 33.4 pg (27.0-31.0); Mean Corpuscular Volume 96.1 fL (78.0-98.0); Platelet Count 141 thou/uL (130-400); RBC Distribution Width 11.6 % (11.5-14.5); Red Blood Cell (RBC) Count 4.46 mill/uL (4.70-6.10); White Blood Cell (WBC) Count 9.8 thou/uL (4.8-10.8)
[2019-04-14 10:57] LABS: Prothrombin Time 53.5 SEC (12.0-14.7)
[2019-04-14 10:58] LABS: PTT 91.3 SEC (22.9-36.1)
--- NOTE | 2019-04-14 11:05 | RAD ---
XR Chest 1 View Portable HISTORY: Shortness of breath, chest pain COMPARISON: 09/22/2018 FINDINGS: The heart is enlarged. The lungs are expanded without lobar consolidation, pneumothoraces, enedina pulm onary edema or large effusions.
[2019-04-14 11:07] LABS: INR-International Normal Ratio 6.1
[2019-04-14 11:16] LABS: Digoxin 0.65 ng/mL (0.8-2.0)
[2019-04-14 11:32] LABS: ALT (SGPT) 32 U/L (8-55); AST (SGOT) 28 U/L (5-34); Albumin 3.6 g/dL (3.5-5.0); Alkaline Phosphatase 161 U/L (40-150); BUN (Urea Nitrogen) 14 mg/dL (8.4-25.7); Bilirubin, Total 1.4 mg/dL (0.2-1.2); Calc. Creatinine Clearance 0 mL/min (70-130); Carbon Dioxide 27 mmol/L (22-29); Chloride 105 mmol/L (98-107); Estimated GFR-MDRD 87; Globulin 2.9 g/dL (2.4-3.5); Glucose 210 mg/dL (70-105); Lipase 16 U/L (8-78); Potassium 4.2 mmol/L (3.5-5.1); Protein, Total 6.5 g/dL (6.0-8.3); Sodium 140 mmol/L (136-145)
[2019-04-14 12:16] LABS: Anion Gap 12 mmol/L (10-20)
== END 2019-04-14 12:33 | disposition home or self-care (01) ==
LOC: ERS 10:11
DX: R79.89 Other specified abnormal findings of blood chemistry (principal); M19.90 Unspecified osteoarthritis, unspecified site; E11.9 Type 2 diabetes mellitus without complications; I10 Essential (primary) hypertension; Z87.891 Personal history of nicotine dependence; Z79.01 Long term (current) use of anticoagulants; Z79.891 Long term (current) use of opiate analgesic; Z79.899 Other long term (current) drug therapy; Z79.84 Long term (current) use of oral hypoglycemic drugs
CPT/HCPCS: 71045; 80053; 80162; 83690; 84484; 85025; 85610; 85730; 93005; 94760